=== PATIENT | female | born 2005 | race Caucasian/White ===

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

== ENCOUNTER 2023-11-25 13:07 | Outpatient (CLI) | payer BC, SELFPAY ==
--- NOTE | ~2023-11-25 | XR_ITS ---
XR ribs RT 2V Ordering provider: Viola Reilly, [employer] History: . no injury RIGHT LATERAL LOWER RIB PAIN for 2 days . Comparison: None. FINDINGS: BONES: No acute right rib fracture or fracture of the visualized osseous structures. LUNGS: No effusions or infiltrates. No pneumothorax. SOFT TISSUES: Normal. IMPRESSION: No right rib fracture . Reviewed, dictated and finalized at location A. IMPRESSION: No right rib fracture .
== END 2023-11-25 13:08 ==
LOC: MICIMG 13:09
PROVIDERS: PCP Nurse Practitioner; Visit Provider Nurse Practitioner
DX: R07.81 Pleurodynia (principal)
CPT/HCPCS: 71100

== ENCOUNTER 2023-11-26 12:54 | Emergency (ER) | payer BC, SELFPAY ==
--- NOTE | ~2023-11-26 | CT_ITS ---
CT abdomen pelvis wo con Ordering provider: Daphne Banks APRN History: 18 years Female with . R flank pain . Comparison: January 19, 2022 Technique: CT abdomen and pelvis without IV and without oral contrast. Automated exposure control and iterative reconstruction technique were employed. The dose-length product was 408.82 mGy-cm. Findings: VISUALIZED LOWER CHEST: Normal. UPPER ABDOMINAL ORGANS: Liver: Normal. Gallbladder: Status post cholecystectomy. Spleen: Normal. Stomach/duodenum: Normal. Pancreas: Normal. Adrenals: Normal. Kidneys: Normal. PELVIC ORGANS: The bladder is underfilled. Uterus: Normal. BOWEL AND MESENTERY: Colon: Mild sigmoid diverticulosis without diverticulitis. Hypodense object seen in the cecum. Normal appendix. Small Bowel: Normal. No obstruction. Peritoneum/mesentery: No free air or free fluid. No mesenteric lymphadenopathy. Small mesenteric lymp h nodes are noted. RETROPERITONEUM: Mild atheromatous disease of the abdominal aorta. No retroperitoneal lymphadenopat hy. MUSCULOSKELETAL: Superficial soft tissues: The superficial soft tissues are normal. Bones: Normal spine. IMPRESSION: 1. No acute abdominal process. 2. No renal stones seen. Reviewed, dictated and finalized at location A.
[2023-11-26 13:05] VITALS: PULSE 100; RESP 16; TEMP 36.8; O2SAT 98
--- NOTE | 2023-11-26 13:39 | ED.GENADULT ---
HPI - General Adult General Chief complaint: Urogenital-Female Stated complaint: Rt sided flank and perineal pain Time Seen by Provider: 11/26/23 13:23 Source: patient Mode of arrival: ambulatory Limitations: no limitations History of Present Illness HPI narrative: Pt is a 18-year-old female who presents to the ER with complaints of R flank pain that started two days ago. She reports she has had this before but the problem goes away on it's own. Pt has never seen a healthcare provider for these symptoms. She has not taken anything at home to try to relieve the pain. Pt verbalizes she has not noticed any visible blood in her urine. Related Data Home Medications Medication Instructions Recorded Confirmed norethindrone 1 mg-ethinyl tablet 11/26/23 estradiol 20 mcg (21)-iron 75 mg (7) tablet (04/26 (28)) Allergies Allergy/AdvReac Type Severity Reaction Status Date / Time prednisone Allergy Mild Joint Pain Verified 11/26/23 13:39 Review of Systems Review of Systems: All systems reviewed & are unremarkable except as noted in HPI and below PMFSH Past Medical History Medical History Abnormal digestive system diagnostic imaging Abnormal findings on imaging of biliary tract Elevated ALT measurement Elevated ALT measurement Gallbladder sludge Hepatomegaly Nausea and vomiting Right upper quadrant abdominal pain Surgical History Surgical History History of endoscopy Hx laparoscopic cholecystectomy 02/21/22 [place] teeth extracted Family History Family History Other Cerebrovascular accident Diabetes mellitus Heart disease Hypertension Social History Social History Smoking status: Never smoker Second hand tobacco smoke exposure: No Alcohol intake: never Substance use: never Substance use type: does not use Living arrangements: dorm student housing Additional living arrangements comments: WILL BE AT HOME WITH PARENTS AFTER SURGERY Occupation/Education: student Gender identity (if verbalized by the patient): Female Spiritual care concerns: No Course Vital Signs Vital signs: Vital Signs Temperature 36.8 C 11/26/23 13:05 Pulse Rate 100 11/26/23 13:05 Respiratory Rate 16 11/26/23 13:05 Pulse Oximetry 98 11/26/23 13:05 Temperature 36.8 C 11/26/23 13:05 Pulse Rate 100 11/26/23 13:05 Respiratory Rate 16 11/26/23 13:05 Pulse Oximetry 98 11/26/23 13:05 Medical Decision Making MDM Narrative Medical decision making narrative: Pt is a 18-year-old female who presents to the ER with complaints of R flank pain that started two days ago. She reports she has had this before but the problem goes away on it's own. Pt has never seen a healthcare provider for these symptoms. She has not taken anything at home to try to relieve the pain. Pt verbalizes she has not noticed any visible blood in her urine. Upon examination pt does not have any tenderness with palpation on his R side. Her exam is unremarkable. Pt's bloodwork was unremarkable, other than slightly elevated AST and anion gap, along with a decreased sodium and creatinine. Her urinalysis was 4+ for ketones, so pt was given an 1000 mL IV bolus of 0.9NS to help correct dehydration. Pt reports her pain is a 6/10, so Toradol 15mg IV was ordered. An abdominal/pelvic CT scan was performed which showed no acute abdominal process and no renal stones were seen. After Toradol administration, pt's R flank pain was improved. She was in agreement with being discharged, but will return to the ER with any worsening symptoms. Pt will be given the name of a PCP and advised to follow-up with them. Naproxen will be prescribed to pt for her to take at home.Pt verbalized understa
[2023-11-26] MEDS: KETOROLAC 15 MG/ML VIAL (*BKC) IV PUSH (13:43)
[2023-11-26 13:49] LABS: Basophils Percent Auto 0.2 % (0.2-1.2); Hematocrit 39.9 % (37.0-47.0); Hemoglobin 13.7 g/dL (12.0-15.0); Immature Granulocyte Absolute 0.03 K/mm3 (0.00-0.031); Immature Granulocyte Percent A 0.3 % (0-0.5); Lymphocytes Absolute Auto 3.31 K/mm3 (0.9-3.2); Lymphocytes Percent Auto 32.8 % (18.3-44.2); Mean Corpuscular HGB Conc 34.3 g/dl (32-36); Mean Corpuscular Hemoglobin 31.3 pg (26-34); Mean Corpuscular Volume 91.1 fl (80-100); Mean Platelet Volume 11.3 fl (7.4-10.4); Monocytes Absolute Auto 0.6 K/mm3 (0.1-0.6); Neutrophils Absolute Auto 6.1 K/mm3 (1.3-6.7); Neutrophils Percent Auto 60.7 % (45.5-73.1); Platelet Count Result 290 k/mm3 (150-375); Red Blood Count 4.38 M/mm3 (4.2-5.4); Red Cell Distribution Width 12.3 % (11.5-14.5); White Blood Count 10.1 K/mm3 (4.5-10.0)
[2023-11-26 13:55] LABS: BEDSIDEPREGUCG Negative
[2023-11-26 14:04] LABS: Add Urine Microscopic? YES; Appearance Urine Clear (Clear); Bacteria Urine None Seen /hpf; Bilirubin Urine Negative (Negative); Blood Urine Negative (Negative); Color Urine Yellow (Yellow); Glucose Urine UA Negative (Negative); Ketones Urine 4+ mg/dL (Negative); Leukocyte Esterase Ur Negative LEU/UL (Negative); Nitrate Urine Negative (Negative); Non Pathogenic Casts 0-2; Protein Urine Trace mg/dL (Negative); Specific Grav Ur 1.023 (1.001-1.035); Squamous Epithelial Cell Urine Occasional /hpf (Few); WBC Urine 0-5 /hpf (0-3); pH Urine 5.5 (5.0-9.0)
[2023-11-26 14:07] LABS: Alanine Aminotransferase 32 U/L (6-35); Albumin Level 4.9 g/dL (3.5-5.1); Alkaline Phosphatase 53 U/L (38-126); Anion Gap 17 mmol/L (4-12); Aspartate Amino Transferase 41 U/L (14-36); Bilirubin,Total 0.7 mg/dL (0.2-1.3); Blood Urea Nitrogen 8 mg/dL (7-17); Calcium 9.9 mg/dL (8.4-10.2); Carbon Dioxide 19 mmol/L (22-30); Chloride 99 mmol/L (98-107); Estimated CRCL calculation 119 ml/min; Estimated Glomerular Filt Rate > 60; Glucose 77 mg/dL (65-110); Sodium 135 mmol/L (137-145)
[2023-11-26] MEDS: SODIUM CHLORIDE 0.9% IV 1,000 ML 999 ML IV CONT (14:48)
[2023-11-26 16:38] VITALS: BP 126/86; PULSE 99; RESP 15; TEMP 36.6; O2SAT 100
--- NOTE | 2023-11-27 19:17 | ED.GENADULT ---
HPI - General Adult General Chief complaint: Urogenital-Female Stated complaint: Rt sided flank and perineal pain Time Seen by Provider: 11/26/23 13:23 Source: patient Mode of arrival: ambulatory Limitations: no limitations Related Data Home Medications Medication Instructions Recorded Confirmed norethindrone 1 mg-ethinyl tablet 11/26/23 estradiol 20 mcg (21)-iron 75 mg (7) tablet ( FE 04/26 (28)) Allergies Allergy/AdvReac Type Severity Reaction Status Date / Time prednisone Allergy Mild Joint Pain Verified 11/26/23 13:39 [facility] Past Medical History Medical History Abnormal digestive system diagnostic imaging Abnormal findings on imaging of biliary tract Elevated ALT measurement Elevated ALT measurement Gallbladder sludge Hepatomegaly Nausea and vomiting Right upper quadrant abdominal pain Surgical History Surgical History History of endoscopy Hx laparoscopic cholecystectomy 02/21/22 [place] teeth extracted Family History Family History Other Cerebrovascular accident Diabetes mellitus Heart disease Hypertension Social History Social History Smoking status: Never smoker Second hand tobacco smoke exposure: No Alcohol intake: never Substance use: never Substance use type: does not use Living arrangements: dorm student housing Additional living arrangements comments: WILL BE AT HOME WITH PARENTS AFTER SURGERY Occupation/Education: student Gender identity (if verbalized by the patient): Female Spiritual care concerns: No Exam Narrative: GENERAL: Well-appearing, well-nourished and in no acute distress. CARDIAC: Regular rate and rhythm without murmurs, rubs or gallops. RESPIRATORY: Clear to auscultation bilaterally. No wheezes, rales or rhonchi. ABDOMEN: Soft, nontender, normoactive bowel sounds throughout, no guarding, no rebound. No masses appreciated. EXTREMITIES: Normal range of motion, no swelling, clubbing or other deformities. NEUROLOGICAL: Cranial nerves II through XII grossly intact, no focal deficits noted. Normal gait, normal speech. SKIN: Warm, dry, normal color, no rashes, no lesions. Course Vital Signs Vital signs: Vital Signs Temperature 36.8 C 11/26/23 13:05 Pulse Rate 100 11/26/23 13:05 Respiratory Rate 16 11/26/23 13:05 Pulse Oximetry 98 11/26/23 13:05 Temperature 36.6 C 11/26/23 16:38 Pulse Rate 99 11/26/23 16:38 Respiratory Rate 15 11/26/23 16:38 Blood Pressure 126/86 11/26/23 16:38 Pulse Oximetry 100 11/26/23 16:38 Medical Decision Making Vital Signs Vital Signs: Vital Signs Temperature 36.8 C 11/26/23 13:05 Pulse Rate 100 11/26/23 13:05 Respiratory Rate 16 11/26/23 13:05 Pulse Oximetry 98 11/26/23 13:05 Temperature 36.6 C 11/26/23 16:38 Pulse Rate 99 11/26/23 16:38 Respiratory Rate 15 11/26/23 16:38 Blood Pressure 126/86 11/26/23 16:38 Pulse Oximetry 100 11/26/23 16:38 Lab Data 11/26/23 13:40 11/26/23 13:40 Labs: Lab Results 11/26/23 11/26/23 11/26/23 Range/Units 13:40 13:51 13:52 WBC 10.1 H (4.5-10.0) K/mm3 RBC 4.38 (4.2-5.4) M/mm3 Hgb 13.7 (12.0-15.0) g/dL Hct 39.9 (37.0-47.0) % MCV 91.1 (80-100) fl MCH 31.3 (26-34) pg MCHC 34.3 (32-36) g/dl RDW 12.3 (11.5-14.5) % Plt Count 290 (150-375) k/mm3 MPV 11.3 H (7.4-10.4) fl Immature Gran % (Auto) 0.3 (0-0.5) % Neut % (Auto) 60.7 (45.5-73.1) % Lymph % (Auto) 32.8 (18.3-44.2) % Dunn % (Auto) 6.0 (2.6-8.5) % Eos % (Auto) 0.0 (0-4.4) % Baso % (Auto) 0.2 (0.2-1.2) % Lymph # (Auto) 3.31 H (0.9-3.2) K/mm3 Dunn # (Auto) 0.6 (0.1-0.6) K/mm3 Eos # (Aut
== END 2023-11-26 16:39 | disposition home or self-care (01) ==
PROVIDERS: Emergency Medicine; Emergency Provider Registered Nurse
DX: R10.11 Right upper quadrant pain (principal); Z90.49 Acquired absence of other specified parts of digestive tract
CPT/HCPCS: 36415; 74176; 80053; 81001; 81025; 85025; 96361; 96374; 99284; J1885; J7030

== ENCOUNTER 2023-11-28 11:43 | Outpatient (CLI) | payer BC, SELFPAY ==
--- NOTE | ~2023-11-28 | US_ITS ---
EXAMINATION: US retroperitoneal comp DATE: 11/28/2023 12:11 INDICATION: Incomplete bladder emptying TECHNIQUE: Multiple ultrasound grayscale images of the kidneys were obtained. COMPARISON: None. FINDINGS: The right kidney measures 10.4 x 4.0 x 4.4 cm. The left kidney measures 11.3 x 5.3 x 4.7 cm. The kidn eys demonstrate normal echogenicity. There is no hydronephrosis in either kidney. No stones identifi ed. The bladder appears normal but is only incompletely distended on the initial image with calculate d volume of 26 mL. No significant residual postvoid bladder volume of <1 mL. IMPRESSION: 1. Normal kidneys without hydronephrosis. Reviewed, dictated and finalized at location A.
== END 2023-11-28 11:44 ==
LOC: MICIMG 11:45
PROVIDERS: PCP Nurse Practitioner Family; Visit Provider Nurse Practitioner Family
DX: R33.9 Retention of urine, unspecified (principal)
CPT/HCPCS: 76770

== ENCOUNTER 2023-12-01 13:21 | Emergency (ER) | payer BC, SELFPAY ==
[2023-12-01 14:16] VITALS: BP 144/87; PULSE 100; RESP 16; TEMP 36.6; O2SAT 98
--- NOTE | 2023-12-01 14:16 | ED.FEMALEGU ---
HPI - Female Genitourinary General Chief complaint: Urogenital-Female <Janis Toribio PA-C - Last Filed: 12/02/23 10:11> Stated complaint: trouble urinating, hx kidney stones <Janis Toribio PA-C - Last Filed: 12/02/23 10:11> Time Seen by Provider: 12/01/23 14:16 <Janis Toribio PA-C - Last Filed: 12/02/23 10:11> Focused HPI: This is a 18 year old female that presents to the ER for dysuria. Has been seen in the ER and is currently following with urology for this. Reports history of kidney stones. Is concerned she may have one blocking. Reports she is not sexually active. Has no concern for STDs. Denies fever, vomiting, hematuria. GENERAL: Well-appearing, well-nourished, and in no acute distress. HEAD: Normocephalic, atraumatic. CHEST: Clear to auscultation. ?No respiratory distress. HEART: Regular rate and rhythm.? NEURO: ?Alert and oriented x3. Patient screened in triage and initial orders placed.? ?Additional care and disposition to be based upon?diagnostic testing and treatment. <Janis Toribio PA-C - Last Filed: 12/02/23 10:11> History of Present Illness HPI Narrative: This is a 18-year-old female presenting for dysuria and urgency. She states she feels like she is having urinary symptoms consistent with an obstruction. She called her urologist who referred to the ED for evaluation. She has been seen on outpatient basis by Urology for similar concerns as presently taking antibiotic for the next 2 weeks for these symptoms. She presents today as she is feels like she is not able to fully empty her bladder. Denies any vaginal issues, vaginal bleeding or discharge. No fever, chills, back pain, abdominal pain was otherwise in her normal state of health. Injuries or traumas. No new sexual encounters. <Mike Nieto MD - Last Filed: 12/01/23 17:41> Related Data Home medications: Home Medications Medication Instructions Recorded Confirmed norethindrone 1 mg-ethinyl tablet 11/26/23 estradiol 20 mcg (21)-iron 75 mg (7) tablet (04/26 (28)) <Janis Toribio PA-C - Last Filed: 12/02/23 10:11> Allergies/Adverse reactions: Allergies Allergy/AdvReac Type Severity Reaction Status Date / Time prednisone Allergy Mild Joint Pain Verified 12/01/23 13:23 <Janis Toribio PA-C - Last Filed: 12/02/23 10:11> Review of Systems Review of Systems: As reviewed above in HPI <Mike Nieto MD - Last Filed: 12/01/23 17:41> [facility] Past Medical History Medical History: Medical History Abnormal digestive system diagnostic imaging Abnormal findings on imaging of biliary tract Elevated ALT measurement Elevated ALT measurement Gallbladder sludge Hepatomegaly Nausea and vomiting Right upper quadrant abdominal pain <Janis Toribio PA-C - Last Filed: 12/02/23 10:11> Surgical History Surgical History: Surgical History History of endoscopy Hx laparoscopic cholecystectomy 02/21/22 [place] teeth extracted <Janis Toribio PA-C - Last Filed: 12/02/23 10:11> Family History Family History: Family History Other Cerebrovascular accident Diabetes mellitus Heart disease Hypertension <KILEY Krishna Last Filed: 12/02/23 10:11> Social History Social History: Social History Smoking status: Never smoker Second hand tobacco smoke exposure: No Alcohol intake: never Substance use: never Substance use type: does not use Living arrangements: dorm student housing Additional living arrangements comments: WILL BE AT HOME WITH PARENTS AFTER SURGERY Occupation/Education: student Gender identity (if verbalized by the patient): Female Spiritual care concerns: No
[2023-12-01 14:36] LABS: Basophils Percent Auto 0.3 % (0.2-1.2); Eosinophils Percent Auto 0.4 % (0-4.4); Hematocrit 38.4 % (37.0-47.0); Hemoglobin 13.4 g/dL (12.0-15.0); Immature Granulocyte Absolute 0.02 K/mm3 (0.00-0.031); Immature Granulocyte Percent A 0.2 % (0-0.5); Lymphocytes Absolute Auto 2.96 K/mm3 (0.9-3.2); Mean Corpuscular HGB Conc 34.9 g/dl (32-36); Mean Corpuscular Hemoglobin 31.5 pg (26-34); Mean Corpuscular Volume 90.1 fl (80-100); Monocytes Absolute Auto 0.7 K/mm3 (0.1-0.6); Monocytes Percent Auto 7.6 % (2.6-8.5); Neutrophils Absolute Auto 5.2 K/mm3 (1.3-6.7); Neutrophils Percent Auto 58.5 % (45.5-73.1); Platelet Count Result 265 k/mm3 (150-375); Red Blood Count 4.26 M/mm3 (4.2-5.4); Red Cell Distribution Width 12.5 % (11.5-14.5)
[2023-12-01 14:41] LABS: Add Urine Microscopic? NO; Appearance Urine Clear (Clear); Bilirubin Urine Negative (Negative); Blood Urine Negative (Negative); Color Urine Yellow (Yellow); Glucose Urine UA Negative (Negative); Ketones Urine Trace mg/dL (Negative); Leukocyte Esterase Ur Negative LEU/UL (Negative); Nitrate Urine Negative (Negative); Protein Urine Negative (Negative); Specific Grav Ur 1.017 (1.001-1.035); Urobilinogen Urine 0.2 mg/dL (<2.0)
[2023-12-01 14:48] LABS: Alanine Aminotransferase 30 U/L (6-35); Albumin Level 4.8 g/dL (3.5-5.1); Alkaline Phosphatase 54 U/L (38-126); Anion Gap 15 mmol/L (4-12); Aspartate Amino Transferase 29 U/L (14-36); Bilirubin,Total 0.6 mg/dL (0.2-1.3); Blood Urea Nitrogen 7 mg/dL (7-17); Carbon Dioxide 17 mmol/L (22-30); Chloride 105 mmol/L (98-107); Estimated Glomerular Filt Rate > 60; Glucose 97 mg/dL (65-110); Sodium 137 mmol/L (137-145)
[2023-12-01 16:02] LABS: Pregnancy On Board Control Positive; Urine Pregnancy Test Negative
== END 2023-12-01 17:48 | disposition home or self-care (01) ==
PROVIDERS: Physician Assistant; Emergency Provider Student in an Organized Health Care Education/Training Program; PCP Nurse Practitioner Family
DX: R30.0 Dysuria (principal)
CPT/HCPCS: 36415; 80053; 81003; 81025; 85025; 99283